=== PATIENT | male | born 1950 | race Caucasian/White ===

== ENCOUNTER 2016-05-05 00:18 | Day surgery (SDC) | payer MEDICARE ==
[2016-05-05] VITALS (9 sets, daily range): BP systolic 86–102; BP diastolic 59–85; PULSE 57–108; RESP 18–24; O2SAT 98
[~2016-05-05] VITALS: Ht 172.7 cm; Wt 72.7 kg
[~2016-05-05 00:18] MED LIST: METO25TA3 PO
[2016-05-05] MEDS ORDERED: Propofol 10,000 mCg/mL 20 mL Inj ONE (00:19)
[2016-05-05] MEDS ORDERED: WARF10TA4 PO (10:03)
[2016-05-05] MEDS ORDERED: AMIO200T PO (10:03)
[2016-05-05] MEDS ORDERED: ASPI-973 PO (10:03)
[2016-05-05] MEDS ORDERED: ACET325T51 PO (10:03)
--- NOTE | 2016-05-05 12:58 | PCM.HPANE ---
Patient Data Date of Service: May 05, 2016 Surgeon Admitting Provider: Attending Provider:Jax Corrales MD Primary Care Physician:Other,Physician Other Provider: Reason for Visit Typical Arterial Flutter Ht/WT & BMI Height (Feet): 5 Height (Inches): 8.00 Weight (Kilograms): 72.700 Body Mass Index 24.29 Allergies Coded Allergies: Sulfa (Sulfonamide Antibiotics) (Unverified Allergy, Unknown, 02/21/16) Past Anesthesia History Anesthesia History: Positive for:: Anesthesia Reactions (hypothermia) Diabetes History Hx Diabetes?: No MRSA MRSA: No Medications Hypertension Medication: Yes Home Meds Incl Beta Zoey: Yes Date Beta Zoey Taken: May 04, 2016 Previous Beta Zoey Dose >24: Give Dose Perioperatively Active Scripts Metoprolol Succinate ER (Toprol XL)25 Mg [id number] Mg PO DAILY #30 TABLET Ref 0 Prov:Jax Corrales MD 02/22/16 Reported Medications Acetaminophen 325 Mg [id number] Mg PO Q4H PRN For Fever Ref 0 05/05/16 Aspirin 81 Mg [id number] Mg PO DAILY Ref 0 05/05/16 Amiodarone 200 Mg [id number] Mg PO BID Ref 0 05/05/16 Warfarin Sodium 10 Mg [id number] Mg PO DAILY 30 Days Ref 0 05/05/16 History HEENT History: Positive for:: Cataracts (both) Denies:: Dysphagia (increased gag reflex) Hx of Heart Problems?: Yes Cardiovascular History: Positive for:: Cardiac Surgery (mitral valve replacement) Chest Pain Heart Murmur Irregular Heartbeat (atrial fibrillation) Denies:: Congestive Heart Failure Edema Hypertension Peripheral Vascular Hx of Respiratory Problem?: Yes Respiratory History: Positive for:: Pneumonia (x 2) Other History/Comment cough present since extubated from MVR Hx Neurologic Problems?: No Hx of GI Problems?: No Hx of Problems?: No Hx Musculoskeletal Problems?: No Musculoskeletal History: Positive for:: Back Injury (herniated disc(surgery done) and protruding disc) Hx of Psycho/Social Problems?: No Hx Surgeries?: Yes Hx Any Other Health Problems?: Yes Other History: Positive for:: Cancer (skin melanoma) Hospitalization Denies:: Thyroid Disease History Blood Transfusions: Positive for:: Accept Blood Products? Blood Transfusions Denies:: Blood Transfuse Reaction Hx Diabetes: No Hx Alcohol Use: Yes (2-3 beers nightly)Hx Substance Use: No Smoking Status: Never Smoker Stop/Bang S-Snoring: Do You Snore Loudly: No T-Tired: feel tired, fatigued: No O-Obsered: Observed not breath: No P-Blood Pressure: treated: Yes B- Body Mass Index > 35 kg/m2: No A- Age over 50: Yes N- Neck Large Circumference: No G- Gender Male: Yes DEVEN Risk Assessment: Low Risk, <3 Yes Risk Assessment Category Category 1A: Patient has history of documented sleep apnea, and HAS NOT received any narcotic, sedative or anesthesia administration during this stay. Category 1B: Patient has history of documented sleep apnea, and HAS received any narcotic , sedative or anesthesia administration during this stay Category 2: Patient has SUSPECTED Obstructive Sleep Apnea, and HAS received any narcotic , sedative or anesthesia administration during this stay. Category 3: Patient has SUSPECTED Obstructive Sleep Apnea and HAS NOT received narcotic, sedative or anesthesia administration during this stay. Category 4: Outpatient in Procedural Areas with known sleep apnea or who screen positive for High Risk via the STOP/BANG questionnaire. Exam Exam Vital Signs Vital Signs Date Time Temp Pulse Resp B/P Pulse Ox O2 Delivery O2 Flow Rate FiO2 05/05/16 12:25 60 24 98/73 98 Nasal Cannula 2.00 05/05/16 12:20 57 24 93/73 98 Nasal Cannula 2.00 05/05/16 12:15 36.8 57 21 87/59 98 Nasal Cannula 4.00 05/05/16 12:15 57 20 05/05/16 12:05 36.8 105 21 86/69 98 Nasal Cannula 4.00 05/05/16 12:05 105 21 86/69 05/05/16 12:00 36.8 105 21 102/72 98 Nasal Cannula 4.00 05/05/16 12:00 105 21 102/74 05/05/16 09:43 36.8 108 22 100/64 98 Room Air General Appearance: Oriented X3 HEENT/AIRWAY: MP 1 Lungs: Clear to Auscultation Heart: Exam Unremarkable Plan Impression Patient chart reviewed, patient interviewed and anesthestic plan with risks, benefits, and alternatives discussed, and informed consent obtained. NPO Status: > 12 hours solids, > 2 hours liquids ASA Physical Status: ASA2 Mod Systemic Disease Anesthetic Plan: GA Bene/Risks/Altern/Consents: Yes HP Complete Prior to Induction: Yes Colten Mackey MD May 05, 2016 12:58
--- NOTE | 2016-05-05 12:59 | PCM.ANEP1 ---
Post Anesthesia Phase 1 PACU Phase 1 Assessment Date of Service: May 05, 2016 Vital Signs Vital Signs Date Time Temp Pulse Resp B/P Pulse Ox O2 Delivery O2 Flow Rate FiO2 05/05/16 12:25 60 24 98/73 98 Nasal Cannula 2.00 05/05/16 12:20 57 24 93/73 98 Nasal Cannula 2.00 05/05/16 12:15 36.8 57 21 87/59 98 Nasal Cannula 4.00 05/05/16 12:15 57 20 05/05/16 12:05 36.8 105 21 86/69 98 Nasal Cannula 4.00 05/05/16 12:05 105 21 86/69 05/05/16 12:00 36.8 105 21 102/72 98 Nasal Cannula 4.00 05/05/16 12:00 105 21 102/74 05/05/16 09:43 36.8 108 22 100/64 98 Room Air Anesthetic Administered: GA Level of Alertness: Awake, talking Pain: No Nausea or Vomiting: No Oxygen Delivery: Nasal Cannula Lungs: Clear to Auscultation Colten Mackey MD May 05, 2016 12:59
--- NOTE | 2016-05-05 12:59 | PCM.ANEP2 ---
Post Anesthesia Evaluation ASA/CMS Post Anesthesia VS in Patient's Normal Range?: Yes Resp Stable; Airway Patent?: Yes CV Function & Hydration Stable: Yes Mental Status Recovered?: Yes Pain control Satisfactory?: Yes N/V Control Satisfactory?: Yes Colten Mackey MD May 05, 2016 12:59
--- NOTE | 2016-05-05 13:35 | DRSVH ---
PROCEDURE: X-RAY CHEST ONE VIEW, PORTABLE ([id number]) INDICATIONS: POST PROCEDURE TECHNIQUE: One view of the chest was acquired. COMPARISON: [facility], CR, XR CHEST 1VW (PORTABLE), 02/21/2016, 16:10. FINDINGS: Surgical changes and devices: Sternal wires and valve surgery are noted. Lungs and pleura: Linear areas of opacity are present in the left base, likely atelectasis. Mediastinum: Mediastinal contours appear normal. Heart size is normal. Bones and chest wall: No suspicious bony lesions. Overlying soft tissues appear unremarkable. IMPRESSION: No acute pulmonary process. Dictated by: Juhi Verma M.D. on 05/05/2016 at 13:33 Approved by: Juhi Verma M.D. on 05/05/2016 at 13:33
[2016-05-05] MEDS ORDERED: Adenosine 3 mg/mL 2 mL Inj ONE (13:48)
[2016-05-05] MEDS ORDERED: 0.9% Sodium Chloride 1,000 ML ONE (13:48)
--- NOTE | 2016-05-06 00:52 | OUT PROC ---
[address] [address] PROCEDURE NOTE PATIENT: MARIELY ACEVEDO : 1950 MR#: [id number] ADMIT: 05/05/2016 JOB ID: [id number] DATE OF PROCEDURE: 05/05/2016 INDICATION: Symptomatic atrial flutter. PROCEDURE: Cardioversion. CONSENT: Patient was explained the risks, benefits and alternatives of the procedure. Informed signed consent was obtained and placed in the chart. Prior to the cardioversion, JORGE was performed to assess for presence of left atrial thrombus. After making sure the left atrial appendage was free of any thrombus, a synchronized 150 joules of DC current was administered. Patient converted to sinus rhythm and maintained sinus rhythm. Postprocedure EKG showed sinus bradycardia at the rate of 50 beats per minute. IMPRESSION: Successful synchronized DC cardioversion.
--- NOTE | 2016-05-08 15:06 | DRSVH ---
[facility] [address] [place] [address] Echocardiogram Report Name: MARIELY ACEVEDO RStudy Date: 05/05/2016 Hospital Exam Location: [facility] Gender: Male : 1950 Age: 65 yrs Reason For Study: Atrial flutter Ordering Physician: Performed By: Janine Dooley Interpretation Summary JORGE to rule out left atrial appendage thrombus prior to cardioversion. 1. No thrombus detected in the left atrial appendage. 2. Normal LV function. 3. Normal prosthetic mitral valve function. Procedure: Informed consent for Transesophageal Echocardiogram, and use of a contrast agent as needed, was obtained prior to the procedure. The patient was brought to the [facility] in a fasting state. An intravenous line was placed. A topical anesthetic agent was used for oropharangeal anesthesia. A bite block was inserted. Sedation was managed by anesthesiologist; see anesthesiology notes for details. A multifrequency, multiplane transesopheageal echocardiographic endoscope was inserted and manipulated in the standard fashion to achieve multiplane views. The transesophageal probe was passed without difficulty. A 2D transesophageal echocardiogram with spectral and color flow Doppler was performed. The patient's vital signs, including blood pressure, heart rate, pulse oximetry and cardiac rhythm were monitored throughout the procedure and remained stable. The patient tolerated the procedure well without evidence of orophangeal or esophageal trauma. There were no complications. Atria: No thrombus is detected in the left atrial appendage. Mitral Valve: An annuloplasty ring is noted in the mitral position. There is trace mitral regurgitation. Aortic Valve: The aortic valve is normal in structure and function. Tricuspid Valve: The tricuspid valve leaflets are thin and pliable. There is mild to moderate tricuspid regurgitation. Right ventricular systolic pressure is estimated to be least 23 mmHg plus the clinically estimated CVP which cannot be estimated on this exam. Doppler Measurements & Calculations TR max rosa: 242.6 cm/sec TR max P.5 mmHg Electronically signed by: Dr. Jax Corrales on Reading Physician:05/08/2016 03:06 PM
== END 2016-05-05 23:59 | disposition home or self-care (01) ==
LOC: SPI 00:18
PROVIDERS: ATTEND Internal Medicine Cardiovascular Disease
DX: I48.3 Typical atrial flutter (principal); Z98.890 Other specified postprocedural states; Z79.02 Long term (current) use of antithrombotics/antiplatelets; Z79.82 Long term (current) use of aspirin; I34.1 Nonrheumatic mitral (valve) prolapse
CPT/HCPCS: 71010; 92960; 93005; C8925; J7030

== ENCOUNTER 2016-05-12 01:22 | Day surgery (SDC) | payer MEDICARE ==
[~2016-05-12] VITALS: Ht 172.7 cm; Wt 72.7 kg
[2016-05-12] VITALS (12 sets, daily range): BP systolic 115–136; BP diastolic 73–89; PULSE 56–65; RESP 12–19; O2SAT 94–96
[~2016-05-12 01:22] MED LIST changes: +ACET325T51 PO; +AMIO200T PO; +ASPI-973 PO; +WARF10TA4 PO
[2016-05-12] MEDS ORDERED: Vancomycin 1,000 mg/200 mL D5W IV SCH (07:25)
[2016-05-12] MEDS ORDERED: MULT1CAP33 PO (11:40)
[2016-05-12] MEDS ORDERED: METO25TA99 PO (11:40)
[2016-05-12 11:43] LABS: BASOPHILS % (AUTO) 0.5 % (0-3); EOSINOPHILS % (AUTO) 1.2 % (0-5); MONOCYTES % (AUTO) 6.2 % (4-12); NEUTROPHILS % (AUTO) 63.8 % (40-74); Platelet Count 299 bil/L (150-400)
[2016-05-12 11:46] LABS: INR 4.03 ratio
[2016-05-12] MEDS ORDERED: CLOT30SO TOPICAL (11:54)
--- NOTE | 2016-05-12 11:55 | NUR ---
Admit [facility] Admitted to [facility] 6 at 1045. VSS. States is having intermittent chest pain but Cath was negative. Noting that pt. is having strong but dull pain with PVC's. Currently SR in 60's. IVs started and labs sent. Procedure and recovery reviewed and verbalizes understanding. Cont. to monitor. Awaiting medical lab assistant.
--- NOTE | 2016-05-12 12:30 | NUR ---
INR Lab INR returned at 4.03. Dr. Rodríguez notified. Fingerstick INR ordered and done with 4.[address] Rodríguez notified and stated he would let us know about proceeding after current case complete.
[2016-05-12] MEDS ORDERED: Heparin 5,000 Units/500 mL NS Premix IV ONE (13:25)
[2016-05-12] MEDS ORDERED: fentaNYL-PF 50 mCg/mL 2 mL Inj ONE ×2 (13:26→14:29)
[2016-05-12] MEDS ORDERED: Ondansetron 2 mg/mL 2 mL Inj IVPUSH PRN (15:00)
[2016-05-12] MEDS ORDERED: HYDROcodone-APAP 5-325 mg Tablet PO PRN (15:00)
--- NOTE | 2016-05-12 15:48 | NUR ---
Received Pt. and Dr. Rodríguez elected to proceed with case. To aquatic life laborer about 1300. Returned about 1520. VSS. Denies pain. Right groin without bleeding or hematoma. Bandaid c/d/i. Toño LLANES placed 10lb sandbag. Taking po without nausea. Continue to monitor per orders.
--- NOTE | 2016-05-12 17:46 | CONS ---
[address] [address] CONSULTATION REPORT PATIENT: MARIELY NEGRON : 1950 MR#: [id number] ADMIT: 05/12/2016 JOB ID: [id number] DATE OF SERVICE: 05/12/2016 REQUESTING PHYSICIAN: Jax Corrales MD: REASON FOR CONSULTATION: Recurrent drug refractory symptomatic atrial flutter. PROBLEM LIST: 1. Recurrent typical counter-clockwise atrial flutter requiring cardioversion. 2. Severe mitral regurgitation status post mitral valve repair approximately six weeks ago. 3. Preserved left ventricular function. MEDICATIONS: 1. Amiodarone 200 mg p.o. twice daily. 2. Aspirin 81 mg p.o. daily. 3. Metoprolol succinate 37.5 mg p.o. daily. 4. Multivitamin one tab p.o. daily. 5. Warfarin 10 mg p.o. daily. IDENTIFICATION AND HISTORY OF PRESENT ILLNESS: Mr. Negron is a pleasant 65-year-old man with preserved LV function, severe MR requiring surgical mitral valve repair. Preoperatively, he had recurrent atrial flutter and postoperatively he continued to have atrial flutter requiring cardioversion despite amiodarone use. He was cardioverted last week after undergoing a JORGE due to subtherapeutic INRs. His left atrial appendage was clear of thrombus. He has maintained sinus rhythm since his cardioversion last week and remains therapeutic with warfarin. In atrial flutter, he has palpitations, shortness of breath and dyspnea. He denies any chest pain, pressure, or discomfort. His EKG shows typical counter-clockwise isthmus flutter with variable AV conduction. IMPRESSION/RECOMMENDATION: Mr. Negron is a pleasant 65-year-old man with preserved left ventricular function, severe mitral regurgitation status post recent repair of his mitral valve with recurrent drug refractory atrial flutter which is highly symptomatic with recurrent cardioversions. Recommended atrial flutter ablation. We discussed the risks and benefits of the ablation in detail, and ultimately he wishes to proceed. PLAN: Atrial flutter ablation. Thank you very much for allowing me to participate in care of Mr. Negron. Please call with any questions. I spent approximately 1 hour with this patient coordinating his care with his other care providers, reviewing his chart. Greater than 50% of this time was spent in counseling.
--- NOTE | 2016-05-12 20:54 | NUR ---
Recovery/Discharge VS and groin remained stable until bedrest complete at 1920. Up to bathroom but had small amt. of bleeding with half dollar sized lump. Pressure held for 15 minutes and groin completely soft without bleeding. After 1 hour of further bedrest, reviewed splinting technique and ambulated again. Groin remained without bleeding or hematoma. Discharge instructions given, see sheets. Verbalizes understanding. Staying the night with Brother. Discharged ambulatory at 2100 with brother and all belongings in no distress.
--- NOTE | 2016-05-13 00:14 | PROCED ---
[address] [address] PROCEDURE NOTE PATIENT: MARIELY ACEVEDO : 1950 MR#: [id number] ADMIT: 05/12/2016 JOB ID: [id number] DATE OF SERVICE: 05/12/2016 PREOPERATIVE DIAGNOSIS(ES): Typical atrial flutter. POSTOPERATIVE DIAGNOSIS(ES): Typical atrial flutter. PROCEDURES PERFORMED: 1. Comprehensive electrophysiology study with left atrial pacing recording via the coronary sinus catheter. 2. Three-dimensional electroanatomic mapping using the CARTO 3 system. 3. Atrial flutter ablation (cavotricuspid isthmus ablation; supraventricular tachycardia ablation). 4. Fluoroscopy. SURGEON: Noah Rodríguez MD PRIMARY CARE NURSE: Toño Enriquez PA-C. ANESTHESIA: Bolus dosing of Versed and fentanyl were utilized for an appropriate level of sedation. INDICATION: The patient is a pleasant, 65-year-old man, with preserved LV function, recent mitral valve repair and recurrent drug refractory symptomatic atrial flutter. After discussion of the risks and benefits of catheter based mapping and ablation, he opted to proceed. PROCEDURAL DESCRIPTION: Following informed and signed consent, the patient was taken to the EP laboratory in a fasting nonsedated state, where he was prepped and draped in the normal sterile fashion. The right inguinal region was infiltrated with 1% lidocaine. Then, using the modified Seldinger technique, one 8 and two 7-Mongolian sheaths were inserted into the right femoral vein. Under fluoroscopic guidance, a deflectable decapolar catheter was advanced to the coronary sinus with the most proximal bipolar at the os of the sinus. A 20 pole Livewire catheter was advanced in the right atrium and used to encircle the tricuspid anulus. A J-curve Smart Touch irrigated ablation catheter was brought to the field and used to create a three-dimensional electroanatomic map of the right atrium, tricuspid anulus and cavotricuspid isthmus. The patient was in sinus rhythm at the onset of the case. Pacing was undertaken from the coronary sinus os while monitoring the atrial activation pattern on the Livewire catheter. A linear series of ablations was performed from the ventricular to the IVC aspect of the cavotricuspid isthmus while monitoring the atrial activation pattern on the Livewire catheter. Ultimately, medial to lateral block was achieved. Lateral to medial block was confirmed. After a 30 minute waiting period, bidirectional block was confirmed. As such, our procedure was completed. During the course of this study, we did complete a comprehensive electrophysiology study with right atrial pacing and recording, right ventricular pacing and recording, His bundle recording, and left atrial pacing and recording via the coronary sinus catheter. All catheters and sheaths were removed. Manual pressure was held for hemostasis. The patient was transferred to the [facility] for monitoring, bedrest and discharge. COMPLICATIONS: None. BLOOD LOSS: Negligible. FINDINGS: 1. Baseline rhythm is sinus with an RR interval of msec, NM 242 msec, QRS 109 msec, QT 341 msec. 2. Intracardiac intervals: AH interval 164 msec, HV 48 msec. 3. Retrograde conduction: No VA conduction was seen. 4. Cavotricuspid isthmus ablation as described above with bidirectional block. Specifically, transisthmus time is 206 msec in the medial to lateral direction, and 196 msec in the lateral to medial direction. IMPRESSION: Successful cavotricuspid isthmus ablation for typical counter-clockwise isthmus flutter. PLAN: 1. Bedrest x4 hours. 2. Decrease amiodarone to 200 mg p.o. daily. 3. Follow up with Toño Enriquez in the clinic in 3-4 weeks, and follow up with Dr. Corrales in three months. ATTENDING STATEMENT: Noah Rodríguez MD, electrophysiology attending, was present for and supervised/performed all aspects of this procedure.
== END 2016-05-12 23:59 | disposition home or self-care (01) ==
LOC: SOUO 01:22
PROVIDERS: ATTEND Internal Medicine Cardiovascular Disease
DX: I48.3 Typical atrial flutter (principal); Z79.01 Long term (current) use of anticoagulants; Z98.890 Other specified postprocedural states; I34.0 Nonrheumatic mitral (valve) insufficiency
CPT/HCPCS: 36415; 80048; 85025; 85610; 93005; 93613; 93621; 93653; C1730; C1731; C1732; C1893; J0131; J1644; J2250